=== PATIENT | male | born 1995 | race American Indian/Alaskan Native ===

== ENCOUNTER 2022-04-13 03:49 | Emergency (ER) | payer SELFPAY ==
[2022-04-13] MEDS ORDERED: dexAMETHasone 4 MG/ML VIAL IM ONE (08:17)
--- NOTE | 2022-04-13 09:53 | Emergency Department Report ---
ED General Adult HPI - General Chief complaint: Sore Throat Stated complaint: SORE THROAT PUI?: No Time Seen by Provider: 04/13/22 08:16 Source: patient Mode of arrival: Ambulatory Limitations: No Limitations - History of Present Illness Initial comments: Patient is a 27-year-old male that comes to the emergency room with what he says starts notice a sore throat on Sunday. But has progressed into a feeling of having a foreign body in his throat. He denies eating any fish or chicken that would result in a bone being lodged. When I entered the room he was sitting leaning forward with a wastebasket in front of him. He states that he has minimal p.o. intake because his throat hurts so bad over the last couple days. He has no fever. No cough. No Ludewig's. No trismus. Patient has no hypotension or tachycardia. He has no fever. There is no exudates on exam. No visible abscess in the posterior pharynx. No lymphadenopathy on palpation. Patient was ambulatory to the ER with family members. ABCs intact and vital signs stable -: Gradual, days(s) Location: neck Improves with: none Worsens with: none Associated Symptoms: denies other symptoms Treatments Prior to Arrival: none - Related Data Previous Rx's Medication Instructions Recorded Last Taken Type Hydrocodone Bit/Acetaminophen 1 each PO Q6H #15 tablet 09/10/13 Unknown Rx [Lortab 5-500 Tablet] Sulfamethoxazole/Trimethoprim 1 each PO BID #20 tablet 09/10/13 Unknown Rx [Bactrim DS] cephALEXin [Keflex] 500 mg PO Q6H #40 capsule 09/10/13 Unknown Rx Mupirocin [Bactroban 2% Oint] 1 applic TP TID #22 gram 09/12/13 Unknown Rx Ondansetron [Zofran] 4 mg PO BID PRN #20 tablet 09/12/13 Unknown Rx Amoxicillin [Trimox CAP] 500 mg PO BID #20 capsule 04/13/22 Unknown Rx Allergies Allergy/AdvReac Type Severity Reaction Status Date / Time No Known Allergies Allergy Unverified 09/10/13 09:49 ED Review of Systems ROS: Stated complaint: SORE THROAT Other details as noted in HPI Comment: All other systems reviewed and negative ED Past Medical Hx - Past Medical History Previous Medical History?: Yes Hx Psychiatric Treatment: Yes (bipolar) - Surgical History Past Surgical History?: No - Family History Family history: no significant - Social History Smoking Status: Never Smoker Substance Use Type: None - Medications Home Medications: Home Medications Medication Instructions Recorded Confirmed Last Taken Type Hydrocodone Bit/Acetaminophen 1 each PO Q6H #15 tablet 09/10/13 Unknown Rx [Lortab 5-500 Tablet] Sulfamethoxazole/Trimethoprim 1 each PO BID #20 tablet 09/10/13 Unknown Rx [Bactrim DS] cephALEXin [Keflex] 500 mg PO Q6H #40 capsule 09/10/13 Unknown Rx Mupirocin [Bactroban 2% Oint] 1 applic TP TID #22 gram 09/12/13 Unknown Rx Ondansetron [Zofran] 4 mg PO BID PRN #20 tablet 09/12/13 Unknown Rx Amoxicillin [Trimox CAP] 500 mg PO BID #20 capsule 04/13/22 Unknown Rx ED Physical Exam - General Limitations: No Limitations General appearance: alert, in no apparent distress - Head Head exam: Present: atraumatic, normocephalic - Eye Eye exam: Present: normal appearance - ENT ENT exam: Present: mucous membranes moist - Expanded ENT Exam Expanded Mouth exam: Absent: trismus, muffled voice Teeth exam: Present: normal inspection Throat exam: Positive: tonsillar erythema - Neck Neck exam: Present: normal inspection, full ROM - Respiratory Respiratory exam: Present: normal lung sounds bilaterally. Absent: respiratory distress - Cardiovascular Cardiovascular Exam: Present: regular rate, normal rhythm. Absent: systolic murmur, diastolic murmur, rubs, gallop - GI/Abdominal GI/Abdominal exam: Present: soft, normal bowel sounds - Rectal Rectal exam: Present: deferred - Extremities Exam Extremities exam: Present: normal inspection - Back Exam Back exam: Present: normal inspection - Neurological Exam Neurological exam: Present: alert, oriented X3 - Psychiatric Psychiatric exam: Present: normal affect, normal mood - Skin Skin exam: Present: warm, dry, intact, normal color. Absent: rash ED Course Vital Signs 04/13/22 04/13/22 04:04 11:19 Temperature 97.1 F L Pulse Rate 85 76 Respiratory 16 Rate Blood Pressure 123/74 Blood Pressure 120/80 [Left] O2 Sat by Pulse 100 Oximetry ED Medical Decision Making - Radiology Data Radiology results: report reviewed, image reviewed No abscess or foreign body visualized - Medical Decision Making Vital Signs 04/13/22 04/13/22 04:04 11:19 Temperature 97.1 F L Pulse Rate 85 76 Respiratory 16 Rate Blood Pressure 123/74 Blood Pressure 120/80 [Left] O2 Sat by Pulse [address] scan noted. Scan done to rule out foreign body rule out abscess given patient's presentation. Rapid strep changes plan of care. Patient medicated with Decadron and Rocephin in the ER. Given that the CT is negative discharging patient home with antibiotics. On discharge exam he is taking p.o. ABCs remained intact. Vital signs stable. Family member at bedside. Patient discharged home with discharge plan of care including diet, activity medications and follow-up. He verbalizes understanding of the need to follow-up or return to the ER if his symptoms worsen. - Differential Diagnosis Rule out abscess/foreign body Critical care attestation.: If time is entered above; I have spent that time in minutes in the direct care of this critically ill patient, excluding procedure time. ED Disposition Clinical Impression: Pharyngitis Qualifiers: Pharyngitis/tonsillitis etiology: other specified organisms Qualified Code(s): J02.8 - Acute pharyngitis due to other specified organisms Disposition: 01 HOME / SELF CARE / HOMELESS Is pt being admited?: No Does the pt Need Aspirin: No Condition: Stable Instructions: Strep Throat, Adult Additional Instructions: meds as ordered today until gone tylenol or motrin for pain follow up with pcp next week to be sure you are getting better CT normal Prescriptions: Amoxicillin [Trimox CAP] 500 mg PO BID #20 capsule Referrals: PRIMARY MD SAVANNA [Primary Care Provider] - 3-5 Days KLARISSA JONES MD [Staff Physician] - 3-5 Days Forms: Work/School Release Form(ED) Time of Disposition: 10:40
--- NOTE | 2022-04-13 09:54 | Cat Scan Report ---
CT NECK WITHOUT CONTRAST HISTORY: Feeling of foreign body in throat COMPARISON: None. TECHNIQUE: Routine CT of the neck is performed without intravenous contrast. All CT scans at this [facility] ation are performed using CT dose reduction for ALARA by means of automated exposure control. FINDINGS: Skull Base: No significant abnormality. Parotid, Carotid, Retropharyngeal, Prevertebral, Pharyngeal Mucosal, and [employer] Spaces: No abnorm al mass or other significant abnormality. Airway: Patent and without significant abnormality. Lymphatics: No lymphadenopathy. Vasculature: No significant abnormality. Osseous Structures: No significant abnormality Additional findings: No radio opaque foreign body is detected on CT. IMPRESSION: 1. No significant abnormality. Signer Name: Pipe Fu Jr, MD Signed: 04/13/2022 9:49 AM Workstation Name: [id number]
[2022-04-13] MEDS ORDERED: LIDOCAINE-MPF (1%) 10 MG/1 ML VIAL 5 ML INFILTRATI ONE (10:22)
[2022-04-13 11:19] VITALS: BP 120/80
== END 2022-04-13 11:18 | disposition home or self-care (01) ==
LOC: ED 03:49
DX: J02.9 Acute pharyngitis, unspecified (principal)
CPT/HCPCS: 70490; 96372; 99283; J0696; J1100; J3490